=== PATIENT | male | born 1990 | race Caucasian/White ===

== ENCOUNTER 2018-11-29 18:08 | Emergency (ER) | payer BC, OTHER ==
[2018-11-29 18:53] VITALS: RESP 18; TEMP 97.8
[2018-11-29] MEDS ORDERED: RX INFO: IV CONTRAST WAS GIVEN 1 EACH MISC MISCELLANE PRN (19:18)
--- NOTE | 2018-11-29 19:19 | XR ---
EXAMINATION TYPE: XR knee complete RT DATE OF EXAM: 11/29/2018 COMPARISON: NONE HISTORY: Knee pain TECHNIQUE: 3 views FINDINGS: I see no fracture nor dislocation. Joint spaces are normal. There is no sign of any joint e ffusion. IMPRESSION: Negative right knee exam.
--- NOTE | 2018-11-29 19:20 | XR ---
EXAMINATION TYPE: XR ankle complete RT DATE OF EXAM: 11/29/2018 COMPARISON: NONE HISTORY: Ankle pain TECHNIQUE: 3 views FINDINGS: Ankle mortise is anatomic. I see no fracture nor dislocation. Joint spaces are normal. IMPRESSION: Negative right ankle exam.
--- NOTE | 2018-11-29 21:10 | CT ---
EXAMINATION TYPE: CT angio lower extremity RT DATE OF EXAM: 11/29/2018 8:20 PM COMPARISON: HISTORY: Right knee pain after dislocating it [address] DLP: 1115.8 mGycm Automated exposure control for dose reduction was used. TECHNIQUE: Performed with IV Contrast, patient injected with 100ml mL of Isovue 370. Multiple axial sections were obtained from the upper abdominal aorta to the bottom of the feet with i ntravenous contrast. There are 3-D post processed images.. FINDINGS: Liver spleen and stomach pancreas gallbladder appear normal. Both kidneys appear normal. There is no adrenal mass. There is no hydronephrosis. Bowel appears fairly normal. Bladder distends smoothly. The re is no inguinal hernia. There is normal contrast opacification of the abdominal aorta. There is contrast opacification of the celiac and superior mesenteric arteries. There is normal contrast opacification of the renal arterie s. There is bilateral contrast opacification of the iliac and femoral arteries. There is wide patency of the femoral and profunda femoris arteries. There is wide patency of the popliteal arteries. There is patency of the tibial arteries and tibial artery trifurcations. There is bilateral arterial flow in the posterior tibial arteries at the ankle. Dorsalis pedis artery is not seen bilaterally. IMPRESSION: NEGATIVE CT ANGIOGRAM OF THE RIGHT LOWER EXTREMITY. NO EVIDENCE OF VASCULAR INJURY.
--- NOTE | 2018-11-29 21:23 | ED ---
Lower Extremity Injury HPI - General Chief Complaint: Extremity Injury, Lower Stated Complaint: knee pain Time Seen by Provider: 11/29/18 19:17 Source: patient Mode of arrival: ambulatory Limitations: no limitations - History of Present Illness Initial Comments: 27-year-old male presenting today for chief complaint of right knee pain patient states tried to do a high kick a home weight came down landing directly on the knee. He states he dislocated his knee he has an office sideways or backwards. Patient states he has had difficulty fully weightbearing and ambulating secondary to the pain. Patient states the pain is in the posterior region of the knee and the medial aspect. Patient states he does have some mild ankle pain he denies any swelling. He does a significant swelling of the knee. He denies any bruising. Patient denies any pallor or coolness of extremity. patient denies any injury to the head neck or back denies any back pain. Remaining review of system negative - Related Data Home Medications Medication Instructions Recorded Confirmed No Known Home Medications 11/29/18 11/29/18 Allergies Allergy/AdvReac Type Severity Reaction Status Date / Time No Known Allergies Allergy Verified 11/29/18 19:22 Review of Systems ROS Statement: Those systems with pertinent positive or pertinent negative responses have been documented in the HPI. ROS Other: All systems not noted in ROS Statement are negative. Past Medical History Past Medical History: No Reported History History of Any Multi-Drug Resistant Organisms: None Reported Past Surgical History: No Surgical Hx Reported Past Psychological History: No Psychological Hx Reported Smoking Status: Current every day smoker Past Alcohol Use History: Occasional Past Drug Use History: Marijuana General Exam - General Exam Comments Initial Comments: General: The patient is awake and alert, in no distress, and does not appear acutely ill. Eye: Pupils are equal, round and reactive to light, extra-ocular movements are intact. No nystagmus. There is normal conjunctiva bilaterally. No signs of icterus. Ears, nose, mouth and throat: There are moist mucous membranes and no oral lesions. Neck: The neck is supple, there is no tenderness or JVD. Cardiovascular: There is a regular rate and rhythm. No murmur, rub or gallop is appreciated. Respiratory: Lungs are clear to auscultation, respirations are non-labored, breath sounds are equal. No wheezes, stridor, rales, or rhonchi. Musculoskeletal: Upon inspection of the knees bilaterally there is no acute abnormality soft tissue swelling. Patient is tender to palpation of the anterior knee as well as in the popliteal and medial aspects. Normal ROM of the hips knees and ankles bilaterally, tenderness noted with range of motion at the right knee. Strength 5/5. Sensation intact both proximal distal to injury site. DP pulses equal bilaterally 2+. Neurological: A&O x 3. CN II-XII intact, There are no obvious motor or sensory deficits. Coordination appears grossly intact. Speech is normal. Skin: Skin is warm and dry and no rashes or lesions are noted. Psychiatric: Cooperative, appropriate mood & affect, normal judgment. Limitations: no limitations Course Vital Signs 11/29/18 11/29/18 18:50 21:39 Temperature 97.8 F Pulse Rate 93 80 Respiratory 18 18 Rate Blood Pressure 103/66 115/63 O2 Sat by Pulse 96 100 Oximetry Medical Decision Making - Medical Decision Making 27-year-old male presented for right knee pain after dislocation. Patient unsure if it was a posterior dislocation. CT angio obtained to rule out vascular injury. No evidence of this is shown on CT angiography. Patient is neurovascular intact. Violet says revealed no acute osseous injury. Patient is placed in knee immobilizer given prescription for crutches as well as outpatient orthopedic surgery follow-up. Patient is agreeable to plan as well as discharg return parameters were discussed at length patient verbalized understanding. Patient is provided work no. Disposition Clinical Impression: Right knee pain, Right ankle pain Disposition: HOME SELF-CARE Condition: Good Instructions (If sedation given, give patient instructions): Ankle Sprain (ED), Knee Sprain (ED) Additional Instructions: Please use medication as discussed. Please follow-up with family doctor in the next 2 days, and orthopedic surgery in the next 2-3 days please use crutches for ambulation. Please return to emergency room if the symptoms increase or worsen or for any other concerns. Is patient prescribed a controlled substance at d/c from ED?: No Referrals: None,Stated [Primary Care Provider] - 1-2 days Ernesto Roman DO [Medical Doctor] - 1-2 days Time of Disposition: 21:18
[2018-11-29 21:41] VITALS: BP 115/63; PULSE 80
== END 2018-11-29 21:39 | disposition home or self-care (01) ==
LOC: EC 18:08
DX: M25.561 Pain in right knee (principal); M25.571 Pain in right ankle and joints of right foot; F17.200 Nicotine dependence, unspecified, uncomplicated; X50.9XXA Other and unspecified overexertion or strenuous movements or postures, initial encounter
CPT/HCPCS: 73562; 73610; 73706; 99284; Q9967